=== PATIENT | female | born 1985 | race Hispanic/Latino ===

== ENCOUNTER 2017-03-03 14:34 | Inpatient (IN) | payer MEDICAID ==
--- NOTE | 2017-03-03 15:42 | C.PDOC ---
History Of Present Illness 32 y/o female presents to ED requesting heroin detox. Patient states she last used late last night and reports she consumed 2 bags. Patient denies chest pain , sob, nausea, vomiting or any other complaints at this time. Time Seen by Provider: 03/03/17 15:33 Chief Complaint (Nursing): Substance Abuse History Per: Patient History/Exam Limitations: no limitations Onset/Duration Of Symptoms: Days Current Symptoms Are (Timing): Still Present Suicide/Self Injury Attempted (Context): None Past Medical History Reviewed: Historical Data, Nursing Documentation, Vital Signs Vital Signs: Last Vital Signs Temp 98.5 F 03/03/17 15:27 Pulse 94 H 03/03/17 15:27 Resp 20 03/03/17 15:27 BP 106/58 L 03/03/17 15:27 Pulse Ox 99 03/03/17 17:44 - Medical History PMH: No Chronic Diseases Surgical History: No Surg Hx Family History: States: No Known Family Hx - Social History Hx Alcohol Use: Yes Hx Substance Use: Yes Review Of Systems Constitutional: Negative for: Fever, Chills Cardiovascular: Negative for: Chest Pain Respiratory: Negative for: Cough, Shortness of Breath Gastrointestinal: Negative for: Nausea, Vomiting Skin: Negative for: Rash Neurological: Negative for: Weakness, Numbness Psych: Negative for: Withdrawal Physical Exam - Physical Exam Appears: Non-toxic, No Acute Distress Skin: Normal Color, Warm, Dry, No Rash Head: Atraumatic, Normacephalic Eye(s): bilateral: Normal Inspection Oral Mucosa: Moist Neck: Normal ROM, Supple Cardiovascular: Rhythm Regular Respiratory: Normal Breath Sounds, No Rales, No Rhonchi, No Wheezing Gastrointestinal/Abdominal: Soft, No Tenderness, No Guarding, No Rebound Extremity: Normal ROM, Capillary Refill (<2 seconds) Neurological/Psych: Oriented x3 Gait: Steady ED Course And Treatment - Laboratory Results Result Diagrams: 03/03/17 17:18 03/03/17 16:32 O2 Sat by Pulse Oximetry: 99 (RA) Pulse Ox Interpretation: Normal Medical Decision Making Medical Decision Making: Progress: Patient is pre screened for detox bed 1750: Patient is medically cleared Disposition - Disposition Disposition: HOSPITALIZED Disposition Time: 17:44 Condition: STABLE Forms: [employer] (Telugu) - Clinical Impression Clinical Impression: Opiate addiction - Scribe Statement The provider has reviewed the documentation as recorded by the Scribe Maricsa Del Toro All medical record entries made by the William were at my direction and personally dictated by me. I have reviewed the chart and agree that the record accurately reflects my personal performance of the history, physical exam, medical decision making, and the department course for this patient. I have also personally directed, reviewed, and agree with the discharge instructions and disposition. Decision To Admit - Pt Status Changed To: Hospital Disposition Of: Inpatient - Admit Certification Admit to Inpatient:: After my assessment, the patient will require hospitalization for at least two midnights. This is because of the severity of symptoms shown, intensity of services needed, and/or the medical risk in this patient being treated as an outpatient. - InPatient: Physician Admission Certification: I certify that this patient requires 2 or more midnights of care for the following reason:: needs detox - . Bed Request Type: Detox Admitting Physician: Donato Puentes Patient Diagnosis: Opiate addiction
[2017-03-03 16:50] LABS: HCG,QUALITATIVE URINE NEGATIVE (NEGATIVE)
[2017-03-03 16:56] LABS: SQUAMOUS EPITHIAL 4 /hpf (0-5); URINE BILIRUBIN NEGATIVE (NEGATIVE); URINE BLOOD NEGATIVE (NEGATIVE); URINE CLARITY Clear (Clear); URINE COLOR Yellow (YELLOW); URINE GLUCOSE (UA) NORMAL (Normal); URINE LEUKOCYTE ESTERASE NEG Leu/uL (Negative); URINE NITRATE NEGATIVE (NEGATIVE); URINE PROTEIN NEGATIVE (NEGATIVE); URINE UROBILINOGEN NORMAL mg/dL (0.2-1.0)
[2017-03-03 17:06] LABS: ALB/GLOB RATIO 1.2 (1.0-2.1); ALBUMIN 4.2 g/dL (3.5-5.0); ALT/SGPT 34 U/L (9-52); AST/SGOT 37 U/L (14-36); BARBITURATES, UR NEGATIVE (NEGATIVE); BLOOD UREA NITROGEN 12 mg/dL (7-17); CALCIUM 8.7 mg/dl (8.6-10.4); GFR AFRICAN-AMERICAN > 60; GFR NON-AFRICAN AMERICAN > 60; PHENCYCLIDINE, UR NEGATIVE (NEGATIVE)
[2017-03-03 17:27] LABS: BASO # 0.1 K/uL (0.0-0.2); BASO % 0.6 % (0.0-2.0); EOS # 0.1 K/uL (0.0-0.7); HEMOGLOBIN 12.5 g/dL (11.0-16.0); LYMPH # 3.6 K/uL (1.0-4.3); LYMPH % 30.5 % (20.0-40.0); MEAN CELL VOLUME 86.4 fL (81.0-99.0); MEAN CORPUSCULAR HGB CONC 32.4 g/dL (33.0-37.0); MONO # 0.8 K/uL (0.0-0.8); MONO % 7.1 % (0.0-10.0); NEUT # 7.1 K/uL (1.8-7.0); NEUT % 60.8 % (50.0-75.0); NRBC % 0.1 % (0.0-2.0); RBC 4.46 Mil/uL (3.80-5.20); RED CELL DISTRIBUTION WIDTH 13.8 % (11.5-14.5); WHITE BLOOD COUNT 11.7 K/uL (4.8-10.8)
[2017-03-03 17:31] LABS: BENZODIAZEPINES, UR POSITIVE (NEGATIVE); OPIATES, UR POSITIVE (NEGATIVE)
[2017-03-03 18:45] VITALS: RESP 18
--- NOTE | 2017-03-03 19:18 | PCM.BM ---
<Renetta,Luba - Last Filed: 03/03/17 19:16> Treatment Plan Problems - Problems identified on initial assessmt Opiate abuse Date Initiated: 03/03/17 Time Initiated: 17:15 Assessment reference: NA Status: Active Treatment assets and liabiliti Patient Assests: cooperative, ADL independent, good support system, negotiates basic needs Patient Liabilities: substance abuse - Milieu Protocol Maintain good personal hygiene: daily Encourage regular showers, daily Remind patient to perform daily oral care, daily Assist patient to perform ADL's Maintain personal safety: every shift Educate patient to report safety concerns to staff, every shift Monitor environment for contraband/sharps Medication safety: Monitor for expected outcome, potential side effects: every shift, Assess barriers to learning: every shift, Assess readiness for medication education: every shift <Florina Villalobos - Last Filed: 03/04/17 11:56> Family Contact Family involvement: Family/SO is involved Family contact: Patient agrees to contact, Telephone contact initiated by staff Family contact name: PARENTS - Goals for Treatment Patient goals for treatment: COMPLETE DETOX AND CONSIDER MMT. Discharge/Continuing Care - Education Needs Education Needs: Patient Medication, Patient Diagnosis/Disease Process, Patient Coping Skills, Patient Anger Management skills, Patient Placement options, Patient Community resources - Discharge Discharge Criteria: Free of agitation, Normal sleep pattern, No longer exhibiting s/s of withdrawal, Reduction of target symptoms Discharge to:: Home, With Family - Treatment Team Participation Patient/Family/SO Statement: 03/04/17 11:55 "I JUST WANNA TRY METHADONE..." Discussed with Family/SO: Yes Was Patient/Family/SO present at Treatment Team Meeting: Yes
[2017-03-04 06:20] VITALS: O2SAT 99
--- NOTE | 2017-03-04 08:33 | RAD ---
HISTORY: pysch COMPARISON: None TECHNIQUE: Chest PA and lateral FINDINGS: LUNGS: No focal consolidation is seen. PLEURA: No pleural effusion is identified. CARDIOVASCULAR: Heart size is within normal limits. OSSEOUS STRUCTURES: Visualized osseous structures are unremarkable. VISUALIZED UPPER ABDOMEN: Unremarkable. OTHER FINDINGS: None. IMPRESSION: No acute cardiopulmonary process seen.
[2017-03-04 10:42] VITALS: TEMP 98.7
--- NOTE | 2017-03-04 13:11 | PCM.PSYCH ---
Initial Psychiatric Evaluation - Initial Psychiatric Evaluation Type of Admission: Voluntary Legal Status: Capacity Chief Complaint (in patient's own words): "I feel terrible" History of Present Illness and Precipitating Events: The patient is seen, chart reviewed and case discussed. 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 The patient is here for heroin detox she uses up to 30 bags of heroin IV the last 8 years. She has been to detox "many times" before and she wants to go to rehabilitation. She used Suboxone from the streets. Last use was last night. She also uses Xanax 2 mg a day "for a long time." Around 9 months now. She had a seizure in the past but is not clear if this for Xanax related. She reports anxiety and irritability but denies all other psych symptoms. Denies other drugs Past psych history: Denies Medical history: Hepatitis C Family psych history: Denies Current Medications: Active Medications Generic Name Dose Route Start Last Admin Trade Name Freq PRN Reason Stop Dose Admin Clonidine HCl 0.1 mg 03/04/17 08:43 Catapres PO Q8 PRN COWS Score More or Equal to 5 Gabapentin 300 mg 03/04/17 10:00 03/04/17 13:08 Neurontin PO 300 mg TID EDITH Administration Hydroxyzine HCl 50 mg 03/04/17 08:40 Atarax PO Q6H PRN Anxiety Loperamide HCl 2 mg 03/04/17 08:43 Imodium PO Q8 PRN Diarrhea Lorazepam 1 mg 03/04/17 09:35 Ativan PO Q6H PRN agitation, benzo wdw Methadone HCl 10 mg 03/04/17 14:00 03/04/17 13:10 Methadone PO 03/04/17 14:01 10 mg ONCE ONE Administration Ondansetron HCl 4 mg 03/04/17 08:43 Zofran Tab PO Q8 PRN Nausea/Vomiting Pneumococcal Polyvalent Vaccine 0.5 ml 03/06/17 10:00 Pneumovax 23 Vaccine IM 03/06/17 10:01 .ONCE ONE Trazodone HCl 100 mg 03/04/17 08:40 Desyrel PO HS PRN insomnia Past Psychiatric History - Past Psychiatric History Previous Treatment History: None Pertinent Medical Hx (Current Medical&Sleep Prob, Allergies): Allergies Allergy/AdvReac Type Severity Reaction Status Date / Time No Known Allergies Allergy Verified 03/03/17 15:29 QUEtiapine [SEROquel] 100 mg PO DAILY 03/03/17 Review of Systems - Neurological Neurological: UNREMARKABLE - Psychiatric Psychiatric: Abnormal Sleep Pattern, Anxiety, Change in Appetite, Difficulty Concentrating, Irritability. absent: Hallucinations, Homicidal Ideation, Suicidal Ideation Mental Status Examination - Personal Presentation Personal Presentation: Looks older than stated age - Affect Affect: Constricted - Motor Activity Motor Activity: Calm - Reliability in Providing Information Reliability in Providing Information: Good - Speech Speech: Organized - Mood Mood: Anxious - Formal Thought Process Formal Thought Process: No Impairment - Cognitive Functions Orientation: Person, Place, Situation, Time Sensorium: Alert Estimate of Intelligence: Average Judgement: Intact, as evidence by: Insight regarding need for hospitalization Memory: Recent intact, as evidence by: Ability to recall events of the day, Remote intact, as evidenced by: Abilit to recall sig. 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 d/o - Recommended/Plan of Treatment Treatment Recommendations and Plan of Treatment: Methadone detox Seroquel for insomnia Gabapentin for augmentation As needed medications All risks, benefits and alternatives of the meds discussed, and the pt agreed and understood. Attend groups and activities Supportive therapy and psychoeducation [place] for abstinence CBT for relapse prevention Encourage MAT Refer to rehab or IOP, and self-help groups Smoking cessation with [place] Nicotine patch 33 min Projected ELOS: 4-5 days Prognosis: good w treatment - Smoking Cessation Smoking Cessation Initiated: Yes
[2017-03-04 13:48] VITALS: BP 102/62; PULSE 59
--- NOTE | 2017-03-04 18:53 | PCM.PYCHDC ---
Mental Status Examination - Mental Status Examination Orientation: Person, Place, Situation, Time Memory: Intact Mood: Anxious Affect: Constricted Speech: Appropriate Attention: WNL Concentration: WNL Association: WNL Fund of Knowledge: WNL Formal Thought Process: No Impairment Suicidal Ideation: No Current Homicidal Ideation?: No Discharge Summary - Discharge Note Reason for Hospitalization: Heroin detox Consultations:: List each consultation separately and include: 1. Reason for request. 2. Findings. 3. Follow-up Summary of Hospital Course include:: 1. Description of specific treatment plan utilized for patients during their course of treatmen. 2. Summarize the time- course for resolution of acute symptoms and/or regressed behaviors. 3. Describe issues identified and worked on during hospitalization. 4. Describe medication utilized. 5. Describe medical problems identified and treated. 6. Reassessment of suicide risk Summary of Hospital Course: The patient is seen, chart reviewed and case discussed, twice today, once in AM , then before she left. 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 The patient is here for heroin detox she uses up to 30 bags of heroin IV the last 8 years. She has been to detox "many times" before and she wants to go to rehabilitation. She used Suboxone from the streets. Last use was last night. She also uses Xanax 2 mg a day "for a long time." Around 9 months now. She had a seizure in the past but is not clear if this for Xanax related. She reports anxiety and irritability but denies all other psych symptoms. Denies other drugs Past psych history: Denies Medical history: Hepatitis C Family psych history: Denies Hospital course: The pt came and spent a night and first thing in AM was demanding for d/c b/c " I need a smoke... I feel trapped...my roommate threw up everywhere." Risks of leaving AMA discussed, including withdrawal, relapse and even OD, seizures and and reassurance given re helping her with nicotine craving plus her withdrawals which had started. She then calmed down and stayed until late afternoon. She took her 20 mg methadone and some prn's and was just fine, ie no withdrawals. Then, after the counselors left, she again demanded d/c. Ocular Care Technician again spoke about the risks, how to help her, and also reminded her that there is a snow storm outside, plus her parents refused to pick her up this morning, if she left AMA. She said they would come. 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 d/o Disposition: AGAINST MEDICAL ADVICE Follow-up Treatment Plan: Return to ER if needed Go to a methadone or suboxone maintenance (she said she had sbx at home) See your PCP Stay away from drugs alcohol
[2017-03-06] MEDS ORDERED: Pneumococcal 23-Valent Vaccine IM ONE (10:00)
[2017-03-06] MEDS ORDERED: Influenza Vaccine 60 mcg/0.5 mL SYR (4YR UP) IM ONE (10:00)
== END 2017-03-04 14:45 | disposition left against medical advice (07) | DRG 743 ==
LOC: C.ER 14:34 → C.7D 17:49
DX: F11.23 Opioid dependence with withdrawal (principal); B19.20 Unspecified viral hepatitis C without hepatic coma; F13.90 Sedative, hypnotic, or anxiolytic use, unspecified, uncomplicated; G47.00 Insomnia, unspecified; F41.9 Anxiety disorder, unspecified; F60.9 Personality disorder, unspecified